=== PATIENT | female | born 1945 ===

== ENCOUNTER 2016-12-14 21:08 | Emergency (ER) | payer MEDICARE ==
[~2016-12-14] VITALS: Ht 162.6 cm; Wt 100.0 kg
[~2016-12-14 21:08] MED LIST: ALBU8.5H2 IH; ALPR0.5T8 PO; FLUT12AE10 IH; FURO-129 PO; INSLIS SUBQ; INSU100V7 SUBQ; LISI-567 PO; PRAV20TA2 PO; SERT25TA2 PO; WARF3TAB7 PO
[2016-12-14 21:24] VITALS: BP 155/79; PULSE 82; RESP 20; O2SAT 92
[2016-12-14 22:21] LABS: BASOPHILS % (AUTO) 0.4 % (0-3); EOSINOPHILS % (AUTO) 2.7 % (0-5); MONOCYTES % (AUTO) 9.3 % (4-12); Mean Corpuscular Hemoglobin 21.7 pg (27.0-35.0); Mean Corpuscular Volume 73.3 fL (81-100); NEUTROPHILS % (AUTO) 54.7 % (40-74); Platelet Count 344 bil/L (150-400)
[2016-12-14 22:36] LABS: INR 1.06 ratio
--- NOTE | 2016-12-14 23:53 | ED.REPORT ---
HPI-General Illness Date of Service December 14, 2016 ED Provider: Esvin Nguyen MD This is a 69 year old female with a history of DVT, PE, diabetes mellitus, COPD , and CHF who presents to the ED due to difficulty breathing for the past several days. Associated symptoms include a productive cough, wheezing, and LE edema. Pt admits that she has not been taking her water pill and denies chest pain. She is currently on warfarin. Nursing Notes Stated Complaint: POSSIBLE BRONCHITIS, FELL & HIT HEAD Chief Complaint: Respiratory Complaints Nursing Notes Reviewed: Yes Allergies: Coded Allergies: Sulfa (Sulfonamide Antibiotics) (Verified Allergy, Unknown, 12/14/16) amoxicillin (Verified Allergy, Unknown, 12/14/16) clavulanic acid (Verified Allergy, Unknown, 12/14/16) iodine (Verified Allergy, Unknown, 12/14/16) Scheduled Fluticasone Propionate (Flovent HFA 220 mcg) 12 Gm Aer.w.adap 1 PUFFS IH BID Furosemide (Lasix) 20 Mg Tablet 20 MG PO DAILY Furosemide (Lasix) 40 Mg Tablet 40 MG PO BID Insulin Human Lispro (HumaLOG U100 Insulin Vial) Unknown Strength Unit 32 SUBQ DAILY Check blood sugars before meals and at bedtime. Use correction factor only before meals. Blood Sugar Lispro Correction: <151, 0 units; 151-175, 1 unit; 176-200, 2 units; 201-225, 3 units; 226-250, 4 units; 251-275, 5 units; 276-300 , 6 units; 301-325, 7 units; 326-350, 8 units; 351-375, 9 units; 376-400, 10 units; >400, 12 units. Lisinopril (Lisinopril) 20 Mg Tablet 20 MG PO BID Pravastatin (Pravastatin) 20 Mg Tablet 40 MG PO DAILY Prednisone (PredniSONE) 20 Mg Tablet 60 MG PO DAILY Sertraline HCl (Zoloft) 25 Mg Tablet 25 MG PO DAILY Warfarin Sodium (Warfarin Sodium) 3 Mg Tablet 6 MG PO DAILY Scheduled PRN Albuterol HFA (Proair HFA) 8.5 Gm Hfa.aer.ad 2 PUFFS IH Q4-6H PRN PRN For Shortness of Breath Albuterol Neb Soln (Albuterol Neb Soln) 2.5 Mg/3 Ml Vial.neb 2.5 MG INHALATION Q4H PRN PRN wheeze Alprazolam (Alprazolam) 0.5 Mg Tablet 0.5 MG PO BID PRN PRN For Anxiety Miscellaneous Medications Insulin Glargine (Lantus U100 Insulin Vial) 100 Unit/Ml Vial 1 UNIT SUBQ General Time Seen by MD: 23:52 Chief Complaint Other (difficulty breathing) Hx Obtained From: Patient Arrived By: Walk-in Sudden in Onset?: Yes Onset Occurred: 3 days ago Symptom Duration: Since onset Past Medical History Past Medical History "Brain bleed," chronic back pain, right humeral fracture from GLF She endorses having PTSD 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- on Warfarin No heart attacks Reports: COPD, Congestive heart failure, Diabetes mellitus, Hyperlipidemia, Hypertension, Mental illness Past Surgical History Reports: Appendectomy Smoking History Current Every Day Smoker Social History Alcohol Use: Denies alcohol use Drug Use: Denies drug use Other Social History: Good social support, Local resident Ambulatory Status Independent Review of Systems Full Review of Systems Respiratory: Reports: Prod cough, clear, Shortness of breath, Wheezing Cardiovascular: Denies: Chest pain Musculoskeletal: Reports: Extremity swelling (bilateral LE edema) Complete sys rev & neg: except as marked. Physical Exam Vital Signs Vital Signs Date Time Temp Pulse Resp B/P Pulse Ox O2 Delivery O2 Flow Rate FiO2 12/15/16 00:30 79 20 96 Room Air 12/14/16 21:24 36.3 82 20 155/79 92 Room Air Initial VS: Reviewed Head / Eyes: Atraumatic, Normocephalic, PERRL ENT: Mucous membranes moist, Conjunctiva normal Abdomen / GI: Soft, Non-tender Back: No CVA tenderness Extremities: Vascular intact, Neuro intact, No tenderness General/Constitutional: Awake, Alert, Cooperative Respiratory / Chest: No rales Wheezing / Retractions: Positive: Wheeze insp/exp diffuse Cardiovascular: No gallop, No murmurs, No rubs Heart Rate / Rhythm: Positive: Tachycardia Lower Ext Edema: Positive: Bilateral 3+ Ankle / Foot: Full range of motion fungal nails Interpretation & Diagnostics Lab Results Interpretation Result Diagram: 12/14/16 2211 12/14/16 2211 Test 12/14/16 22:11 White Blood Count 9.2th/mm3 (3.8-10.1) Red Blood Count 4.94mil/mm3 (3.90-5.20) Hemoglobin 10.7g/dL (12.0-15.6) Hematocrit 36.2% (35.0-46.0) Mean Corpuscular Volume 73.3fL (81-100) Mean Corpuscular Hemoglobin 21.7pg (27.0-35.0) Mean Corpuscular Hemoglobin Concent 29.6% (32.0-37.0) Red Cell Distribution Width 19.2% (12.3-15.4) Platelet Count 344bil/L (150-400) Neutrophils (%) (Auto) 54.7% (40-74) Lymphocytes (%) (Auto) 32.7% (14-46) Monocytes (%) (Auto) 9.3% (4-12) Eosinophils (%) (Auto) 2.7% (0-5) Basophils (%) (Auto) 0.4% (0-3) Prothrombin Time 11.4sec (8.1-12.5) Prothromb Time International Ratio 1.06ratio Activated Partial Thromboplast Time 28.2sec (22.8-33.0) Sodium Level 138mEq/L (134-144) Potassium Level 3.8mEq/L (3.5-5.2) Chloride Level 101mEq/L (97-108) Carbon Dioxide Level 24mmol/L (18-29) Blood Urea Nitrogen 8mg/dL (8-27) Creatinine 0.64mg/dL (0.57-1.00) Estimat Glomerular Filtration Rate 131mL/min (>59) Glucose Level 250mg/dL (60-99) Calcium Level 9.0mg/dL (8.5-10.1) Magnesium Level 1.8mg/dL (1.6-2.6) Total Bilirubin 0.2mg/dL (0.0-1.2) Aspartate Amino Transf (AST/SGOT) 17U/L (0-50) Alanine Aminotransferase (ALT/SGPT) 18U/L (0-32) Alkaline Phosphatase 75U/L (25-165) Troponin T 0.010ug/L (0.0-0.011) Pro-B-Type Natriuretic Peptide 60pg/mL (0-301) Total Protein 7.4g/dL (6.4-8.4) Albumin 3.6g/dL (3.4-5.0) Procalcitonin 0.03ng/mL (0.00-0.08) Hold Amos Top Tube Received (Received) ECG Interpretation Time: 00:30 Interpreted by: ED physician Normal ECG Interpretation: Normal sinus rhythm (rate 77) X-Ray Chest Interpretation Chest Xray Interpretation: Right pleural effusion no real change View: Portable Interpretation / Wet Read by: Interpret - Radiologist Re-Eval/Medical Decision Med Decision/Clinical Course 71-year-old presents with progressive wheezing with a known history of COPD. She continues to smoke. Improved here after nebs and steroids. Home with prednisone course, continue nebulizers, and plan for follow-up with PCP. X-ray shows no apparent pneumonia, no change from prior x-ray. Discharged in stable improved condition. Smoking cessation advised Time of Eval: 02:04 Re-Evaluation/Progress Note: Pt rechecked. Informed pt of normal chest x-ray results and plan for treatment. F/U and RTER warnings given. Pt understands and agrees with plan. All questions addressed. Counseled Regarding: Diagnosis, Lab results, Need for follow-up, When/why to return to ED Discharge & Departure Primary Impression: COPD exacerbation Additional Impression: Edema Edema type: unspecified Qualified Code: R60.9 - Edema, unspecified Disposition: Home Discharge Condition All VS Reviewed: Yes Condition: Stable Additional Instructions: Your labs and imaging were unremarkable. Your chest x-ray does not show pneumonia. Begin prednisone three tabs daily for 5 days then stop. Continue your nebulizer every four hours. Take the Lasix twice daily about 6 hrs apart, in the morning and at lunchtime. Continue Lasix like this for four days, then return to once daily. Follow up with your primary care physician as needed. Return to the Emergency Department for any new or worsening symptoms. I hope you feel better soon! Referrals: Ngozi Gonzalez MD (PCP) Amandeep Attestation Portion of this note were transcribed by Molly Rendon. I, Dr. Esvin Nguyen, personally performed the history, physical exam, and medical decision- making: I reviewed and confirmed the accuracy for the information in the transcribed note. Signed by: amandeep Lassiter, 12/15/16 0300 copies to: Ngozi Gonzalez MD, Christopher W MD December 14, 2016 23:53 Molly Rendon December 15, 2016 00:24
[2016-12-15] MEDS ORDERED: Albuterol 2.5 mg/3 mL Inhalation Solution NEB ONE (00:20)
[2016-12-15] MEDS ORDERED: Albuterol-Ipratropium 3 mL Inhalation Solution NEB ONE (00:20)
[2016-12-15 00:30] VITALS: PULSE 79; RESP 20; O2SAT 96
[2016-12-15] MEDS ORDERED: Dexamethasone 20 mg/2 mL Oral Solution PO ONE (01:10)
[2016-12-15 01:44] LABS: TROPONIN T 0.01 ug/L (0.0-0.011)
[2016-12-15 02:00] LABS: Magnesium 1.8 mg/dL (1.6-2.6)
[2016-12-15] MEDS ORDERED: FURO-128 PO (02:08)
[2016-12-15] MEDS ORDERED: ALBU2.5V4 INHALATION (02:08)
[2016-12-15] MEDS ORDERED: PRE20 PO (02:08)
--- NOTE | 2016-12-16 11:46 | DRSVH ---
PROCEDURE: X-RAY CHEST, TWO VIEWS ([id number]) INDICATIONS: SHORTNESS OF BREATH TECHNIQUE: 2 views of the chest were acquired. COMPARISON: [facility], CR, XR CHEST 2VW, 09/25/2015, 22:17. FINDINGS: Surgical changes and devices: None. Lungs and pleura: No pleural effusions or pneumothorax. Interstitial prominence throughout both lung s greatest in the lung bases. Mediastinum: Mediastinal contours are normal. Heart size is normal. Bones and chest wall: No suspicious bony abnormalities. Soft tissues appear unremarkable. IMPRESSION: No acute change. Stable fibrosis or scarring greatest inferiorly. Dictated by: Acosta Temple M.D. on 12/15/2016 at 7:57 Approved by: Acosta Temple M.D. on 12/15/2016 at 7:59
== END 2016-12-15 02:57 | disposition home or self-care (01) ==
LOC: SED 21:08
DX: J44.1 Chronic obstructive pulmonary disease with (acute) exacerbation (principal); R60.0 Localized edema; I11.0 Hypertensive heart disease with heart failure; E11.59 Type 2 diabetes mellitus with other circulatory complications; E78.5 Hyperlipidemia, unspecified; F17.200 Nicotine dependence, unspecified, uncomplicated; Z79.4 Long term (current) use of insulin; Z79.84 Long term (current) use of oral hypoglycemic drugs; Z88.1 Allergy status to other antibiotic agents; Z88.2 Allergy status to sulfonamides; Z88.8 Allergy status to other drugs, medicaments and biological substances
CPT/HCPCS: 36415; 71020; 80053; 83735; 83880; 84145; 84484; 85025; 85610; 85730; 93005; 94664; 99285; J7613; J7620